=== PATIENT | male | born 1970 | race Caucasian/White ===

== ENCOUNTER 2017-05-17 04:53 | Outpatient (CLI) | payer BC | END 2017-05-17 23:59 | disposition home or self-care (01) | LOC: DIABETIC 04:53 | PROVIDERS: ATTEND Specialist | DX: E11.9 Type 2 diabetes mellitus without complications (principal) | CPT/HCPCS: G0108 ==

== ENCOUNTER 2017-06-30 03:51 | Outpatient (CLI) | payer BC | END 2017-06-30 23:59 | disposition home or self-care (01) | LOC: DIABETIC 03:51 | PROVIDERS: ATTEND Specialist | DX: E11.65 Type 2 diabetes mellitus with hyperglycemia (principal) | CPT/HCPCS: G0108 ==

== ENCOUNTER 2017-08-09 02:08 | Outpatient (CLI) | payer BC, OTHER | END 2017-08-09 23:59 | disposition home or self-care (01) | LOC: DIABETIC 02:08 | PROVIDERS: ATTEND Specialist | DX: E11.65 Type 2 diabetes mellitus with hyperglycemia (principal) | CPT/HCPCS: G0108 ==